=== PATIENT | male | born 1965 | race Caucasian/White ===

== ENCOUNTER 2020-03-22 13:21 | Inpatient (IN) ==
[2020-03-22] MEDS ORDERED: Naloxone 0.4 MG/ML INJ IVP PRN (15:49)
[2020-03-22] MEDS ORDERED: Ondansetron 4 MG/2 ML VIAL IVP PRN (15:49)
[2020-03-22] MEDS ORDERED: 0.9 % Sodium Chloride 1,000 ML IV ONE (16:28)
[2020-03-22] MEDS: *HR* Digoxin 0.5 MG/2 ML AMPUL IVP SCH (16:35)
[2020-03-22] MEDS: Dexamethasone 4 MG/ML VIAL IVP SCH (17:55)
[2020-03-22 18:22] LABS: Basophils # 0.1 K/mcL (0.0-0.2); Basophils % 0.4 %; Eosinophils % 0.2 %; Hematocrit 35.8 % (37.5-50.1); Hemoglobin 11.3 g/dL (12.9-16.9); Immature Granulocytes % 1.1 % (0-4); Lymphocytes # 0.8 K/mcL (0.6-4.6); Lymphocytes % 6.4 %; Mean Corpuscular HGB Conc 31.6 g/dL (31.6-35.5); Mean Corpuscular Hemoglobin 29.2 pg (28.0-33.3); Mean Corpuscular Volume 92.5 fL (83.0-100.0); Mean Platelet Volume 9.5 fL (9.4-12.4); Monocytes # 0.8 K/mcL (0.0-1.3); Platelet Count 307 K/mcL (140-400); Red Blood Count 3.87 M/mcL (4.19-5.50); Red Cell Distribution Width 14.6 % (11.5-14.5); Segmented Neutrophils % 85.9 %; White Blood Count 12.7 K/mcL (4.3-11.1)
[2020-03-22] MEDS ORDERED: *HR* Metoprolol 5 MG/5 ML VIAL IVP ONE (18:32)
[2020-03-22 18:35] LABS: INR 1.7; Prothrombin Time 19.9 Seconds (9.4-12.1)
[2020-03-22 18:53] LABS: BUN/Creatinine Ratio 18 (6-26); Blood Urea Nitrogen 23 mg/dL (6-20); Calcium 8.4 mg/dL (8.6-10.3); Carbon Dioxide 19 mEq/L (23-29); Chloride 100 mEq/L (98-107); Glucose 88 mg/dL (70-105); Osmolality,Calculated 271 (280-300); Potassium 4.7 mEq/L (3.5-5.1); Sodium 129 mEq/L (136-145); Troponin I 0.36 ng/mL (< 0.04); eGFR For African Americans > 60 (> 60); eGFR For Non-African Americans 58 (> 60)
[2020-03-22 19:00] LABS: Bilirubin,Urine Negative (Negative); Blood,Urine Moderate (Negative); Clarity,Urine Clear (Clear); Color,Urine Light-Orange (Yellow); Glucose,Urine (UA) Normal (Normal); Ketones,Urine 10 mg/dL (Negative); Leukocyte Esterase,Urine Negative (Negative); Mucus,Urine Few per lpf (None-Few); Nitrite,Urine Negative (Negative); Protein,Urine 100 mg/dL (Neg-Trace); Specific Gravity,Urine > 1.030 (1.010-1.025)
[2020-03-22] MEDS ORDERED: *HR* Heparin 5,000 UNIT/ML VIAL IVP ONE (20:32)
[2020-03-22] MEDS ORDERED: *HR* Heparin 5,000 UNIT/ML VIAL IVP PRN (20:32)
[2020-03-22] MEDS ORDERED: Heparin 25,000UNIT/250ML 1/2NS 25,000 UNIT/250 ML IV.SOLN IVC SCH (20:45)
[2020-03-22 21:08] LABS: Hematocrit 36.9 % (37.5-50.1); Hemoglobin 11.7 g/dL (12.9-16.9); Mean Corpuscular HGB Conc 31.7 g/dL (31.6-35.5); Mean Corpuscular Hemoglobin 29.2 pg (28.0-33.3); Mean Platelet Volume 9.8 fL (9.4-12.4); Platelet Count 316 K/mcL (140-400); Red Blood Count 4.01 M/mcL (4.19-5.50); Red Cell Distribution Width 14.6 % (11.5-14.5); White Blood Count 13.2 K/mcL (4.3-11.1)
[2020-03-22] MEDS: Piperacillin/Tazobactam 3.375 GM in 0.9 % Sodium Chloride Mini Bag 100 ML IVPB SCH (21:16)
[2020-03-22] MEDS: Loratadine 10 MG TABLET PO SCH (21:16)
[2020-03-22] MEDS: Vancomycin 1,250 MG/262.5 ML IV.SOLN IVPB SCH (21:43)
[2020-03-22] MEDS: Benzonatate 100 MG CAPSULE PO PRN (21:48)
[2020-03-22] MEDS: Heparin 25,000UNIT/250ML 1/2NS 25,000 UNIT/250 ML IV.SOLN IVC SCH (21:50)
[2020-03-22 23:40] LABS: Adenovirus Not Detected (Not Detect); Coronavirus 229E Not Detected (Not Detect); Coronavirus HKU1 Not Detected (Not Detect); Coronavirus NL63 Not Detected (Not Detect); Coronavirus OC43 Not Detected (Not Detect)
[2020-03-22 23:41] LABS: Bordetella Pertussis Not Detected (Not Detect); Chlamydophila pneumoniae Not Detected (Not Detect); Human Metapneumovirus Not Detected (Not Detect); Human Rhinovirus/Enterovirus Not Detected (Not Detect); Influenza A Subtype 2009 H1 Not Detected (Not Detect); Influenza B Not Detected (Not Detect); Mycoplasma pneumoniae Not Detected (Not Detect); Parainfluenza Virus 1 Not Detected (Not Detect); Parainfluenza Virus 2 Not Detected (Not Detect); Parainfluenza Virus 3 Not Detected (Not Detect); Parainfluenza Virus 4 Not Detected (Not Detect); Respiratory Syncytial Virus Not Detected (Not Detect); SARS-CoV-2 DETECTED (Not Detect)
[2020-03-23] MEDS: *HR* Digoxin 0.5 MG/2 ML AMPUL IVP SCH ×2 (00:05→05:25)
[2020-03-23] MEDS: *HR* Metoprolol 5 MG/5 ML VIAL IVP PRN ×2 (02:49→12:51)
[2020-03-23 04:52] LABS: VBG HCO3 21 mEq/L (21-27); VBG PCO2 32 mmHg (41-51); VBG PH 7.42 pH Units (7.32-7.42); VBG PO2 149 mmHg (25-50)
[2020-03-23 04:55] LABS: Basophils % 0.2 %; Eosinophils % 0.1 %; Hematocrit 35.3 % (37.5-50.1); Hemoglobin 11.3 g/dL (12.9-16.9); Immature Granulocytes % 0.5 % (0-4); Lymphocytes # 0.7 K/mcL (0.6-4.6); Mean Corpuscular Volume 93.6 fL (83.0-100.0); Mean Platelet Volume 10.1 fL (9.4-12.4); Monocytes # 0.3 K/mcL (0.0-1.3); Monocytes % 3.4 %; Neutrophils # 7.6 K/mcL (1.6-8.9); Platelet Count 311 K/mcL (140-400); Red Blood Count 3.77 M/mcL (4.19-5.50); Red Cell Distribution Width 14.6 % (11.5-14.5); Segmented Neutrophils % 87.8 %; White Blood Count 8.6 K/mcL (4.3-11.1)
[2020-03-23 05:13] LABS: D-Dimer 3918 ng/mLFEU (0-500); Fibrinogen 716 mg/dL (169-393)
[2020-03-23 05:14] LABS: BUN/Creatinine Ratio 22 (6-26); Blood Urea Nitrogen 24 mg/dL (6-20); Calcium 8.3 mg/dL (8.6-10.3); Carbon Dioxide 20 mEq/L (23-29); Chloride 104 mEq/L (98-107); Glucose 143 mg/dL (70-105); Magnesium 2.3 mg/dL (1.6-2.6); Osmolality,Calculated 283 (280-300); Phosphorous 2.6 mg/dL (2.7-4.5); Potassium 4.6 mEq/L (3.5-5.1); Sodium 133 mEq/L (136-145); eGFR For African Americans > 60 (> 60); eGFR For Non-African Americans > 60 (> 60)
[2020-03-23] MEDS: Piperacillin/Tazobactam 3.375 GM in 0.9 % Sodium Chloride Mini Bag 100 ML IVPB SCH ×3 (05:25→20:14)
[2020-03-23] MEDS: *HR* Heparin 5,000 UNIT/ML VIAL IVP PRN ×2 (05:26→13:06)
[2020-03-23] MEDS: Benzonatate 100 MG CAPSULE PO PRN ×3 (05:27→20:13)
[2020-03-23] MEDS: Dexamethasone 4 MG/ML VIAL IVP SCH (08:50)
[2020-03-23] MEDS: Vancomycin 1,250 MG/262.5 ML IV.SOLN IVPB SCH (08:56)
[2020-03-23] MEDS ORDERED: Pantoprazole 40 MG VIAL IVP SCH (09:00)
[2020-03-23] MEDS ORDERED: Metoprolol XL (24 HR) Succ 50 MG TAB.ER.24H PO SCH ×2 (09:00→21:00)
[2020-03-23] MEDS ORDERED: Perflutren Lipid Microsphere 1.3 ML in 0.9 % Sodium Chloride 8.7 ML IVP PRN (12:44)
[2020-03-23] MEDS: Heparin 25,000UNIT/250ML 1/2NS 25,000 UNIT/250 ML IV.SOLN IVC SCH (18:28)
[2020-03-23] MEDS: Loratadine 10 MG TABLET PO SCH (20:13)
[2020-03-24] MEDS: Vancomycin 1,250 MG/262.5 ML IV.SOLN IVPB SCH ×3 (00:02→19:47)
[2020-03-24 01:32] LABS: Basophils % 0.1 %; Eosinophils % 0.1 %; Hematocrit 36.3 % (37.5-50.1); Hemoglobin 11.7 g/dL (12.9-16.9); Lymphocytes # 0.6 K/mcL (0.6-4.6); Mean Corpuscular HGB Conc 32.2 g/dL (31.6-35.5); Mean Corpuscular Volume 93.1 fL (83.0-100.0); Mean Platelet Volume 10.1 fL (9.4-12.4); Monocytes # 0.4 K/mcL (0.0-1.3); Monocytes % 2.3 %; Neutrophils # 17.7 K/mcL (1.6-8.9); Nucleated Red Blood Cells 0.3 /100 WBC (0); Platelet Count 364 K/mcL (140-400); Red Cell Distribution Width 14.6 % (11.5-14.5); Segmented Neutrophils % 93.5 %
[2020-03-24 01:34] LABS: White Blood Count 18.9 K/mcL (4.3-11.1)
[2020-03-24 01:37] LABS: Fibrinogen 652 mg/dL (169-393)
[2020-03-24 01:38] LABS: D-Dimer 2077 ng/mLFEU (0-500)
[2020-03-24 01:49] LABS: BUN/Creatinine Ratio 28 (6-26); Blood Urea Nitrogen 29 mg/dL (6-20); Calcium 8.7 mg/dL (8.6-10.3); Carbon Dioxide 20 mEq/L (23-29); Chloride 106 mEq/L (98-107); Glucose 120 mg/dL (70-105); Magnesium 2.3 mg/dL (1.6-2.6); Osmolality,Calculated 287 (280-300); Potassium 4.3 mEq/L (3.5-5.1); Sodium 135 mEq/L (136-145); eGFR For African Americans > 60 (> 60); eGFR For Non-African Americans > 60 (> 60)
[2020-03-24] MEDS: Piperacillin/Tazobactam 3.375 GM in 0.9 % Sodium Chloride Mini Bag 100 ML IVPB SCH ×3 (05:24→21:30)
[2020-03-24] MEDS: *HR* Heparin 5,000 UNIT/ML VIAL IVP PRN ×2 (05:30→15:07)
[2020-03-24] MEDS: Metoprolol XL (24 HR) Succ 25 MG TAB.ER.24H PO SCH ×2 (08:43→19:39)
[2020-03-24] MEDS: Dexamethasone 4 MG/ML VIAL IVP SCH (08:44)
[2020-03-24 09:46] LABS: Angiotensin Converting Enzyme 19 U/L (9-67)
[2020-03-24] MEDS: Heparin 25,000UNIT/250ML 1/2NS 25,000 UNIT/250 ML IV.SOLN IVC SCH (12:16)
[2020-03-24 13:27] LABS: INR 1.3; Prothrombin Time 15.4 Seconds (9.4-12.1)
[2020-03-24] MEDS: Nicotine 14 MG PATCH.TD24 TD SCH (13:43)
[2020-03-24] MEDS: Menthol 9.1 MG LOZENGE PO PRN (13:43)
[2020-03-24] MEDS ORDERED: *HR* Warfarin 2.5 MG TABLET PO ONE (18:00)
[2020-03-24] MEDS ORDERED: Warfarin perPT PO PRN (18:00)
[2020-03-24] MEDS: Loratadine 10 MG TABLET PO SCH (19:40)
[2020-03-24] MEDS ORDERED: Levalbuterol Neb 0.63 MG/3 ML IH SCH (22:00)
[2020-03-24] MEDS: Levalbuterol 1 PUFF INHALER IH SCH (22:06)
[2020-03-24] MEDS: Ipratropium 1 PUFF INHALER IH SCH (22:06)
[2020-03-25 02:53] LABS: Basophils % 0.1 %; Hematocrit 37.4 % (37.5-50.1); Hemoglobin 11.5 g/dL (12.9-16.9); Immature Granulocytes % 1.2 % (0-4); Lymphocytes # 0.4 K/mcL (0.6-4.6); Lymphocytes % 2.1 %; Mean Corpuscular HGB Conc 30.7 g/dL (31.6-35.5); Mean Corpuscular Hemoglobin 28.9 pg (28.0-33.3); Mean Platelet Volume 10.5 fL (9.4-12.4); Monocytes # 0.8 K/mcL (0.0-1.3); Monocytes % 3.9 %; Neutrophils # 17.9 K/mcL (1.6-8.9); Platelet Count 378 K/mcL (140-400); Red Blood Count 3.98 M/mcL (4.19-5.50); Segmented Neutrophils % 92.7 %; White Blood Count 19.3 K/mcL (4.3-11.1)
[2020-03-25 03:01] LABS: INR 1.3; Prothrombin Time 15.3 Seconds (9.4-12.1)
[2020-03-25 03:10] LABS: Chol/HDL Ratio 7.7 (0-4.9); Cholesterol 146 mg/dL (< 200); HDL Cholesterol 19 mg/dL (40-59); LDL Cholesterol,Calculated 96 mg/dL (< 100); Triglycerides 153 mg/dL (< 150)
[2020-03-25] MEDS: Heparin 25,000UNIT/250ML 1/2NS 25,000 UNIT/250 ML IV.SOLN IVC SCH ×2 (03:50→19:20)
[2020-03-25] MEDS: Levalbuterol 1 PUFF INHALER IH SCH ×4 (04:00→22:49)
[2020-03-25] MEDS: Ipratropium 1 PUFF INHALER IH SCH ×4 (04:00→22:48)
[2020-03-25] MEDS: Piperacillin/Tazobactam 3.375 GM in 0.9 % Sodium Chloride Mini Bag 100 ML IVPB SCH ×3 (05:15→21:50)
[2020-03-25 06:43] LABS: ANA IgG by ELISA NONE DETECTED (None Detected)
[2020-03-25] MEDS: Nicotine 14 MG PATCH.TD24 TD SCH (09:21)
[2020-03-25] MEDS: Metoprolol XL (24 HR) Succ 25 MG TAB.ER.24H PO SCH ×2 (09:22→21:50)
[2020-03-25] MEDS: Dexamethasone 4 MG/ML VIAL IVP SCH (09:22)
[2020-03-25] MEDS: Benzonatate 100 MG CAPSULE PO PRN ×2 (09:22→21:50)
[2020-03-25] MEDS: Vancomycin 1,250 MG/262.5 ML IV.SOLN IVPB SCH ×2 (09:23→21:52)
[2020-03-25] MEDS ORDERED: Nicotine 2 MG GUM BC PRN (09:38)
[2020-03-25 10:51] LABS: eGFR For African Americans > 60 (> 60); eGFR For Non-African Americans > 60 (> 60)
[2020-03-25 16:42] LABS: Serine Protease-3 Antibody 19 AU/mL (0-19)
[2020-03-25] MEDS ORDERED: *HR* Warfarin 2.5 MG TABLET PO ONE (18:00)
[2020-03-25] MEDS: Loratadine 10 MG TABLET PO SCH (21:49)
[2020-03-25] MEDS: GuaiFENesin/Codeine Oral Soln 5 ML UDC PO PRN (21:49)
[2020-03-26] MEDS: Menthol 9.1 MG LOZENGE PO PRN (02:55)
[2020-03-26 03:54] LABS: INR 1.4; Prothrombin Time 15.8 Seconds (9.4-12.1)
[2020-03-26 03:56] LABS: Hematocrit 40.1 % (37.5-50.1); Hemoglobin 12.4 g/dL (12.9-16.9); Mean Corpuscular HGB Conc 30.9 g/dL (31.6-35.5); Mean Corpuscular Hemoglobin 29.2 pg (28.0-33.3); Mean Corpuscular Volume 94.6 fL (83.0-100.0); Mean Platelet Volume 10.5 fL (9.4-12.4); Platelet Count 393 K/mcL (140-400); Red Blood Count 4.24 M/mcL (4.19-5.50); Red Cell Distribution Width 15.4 % (11.5-14.5); White Blood Count 21.1 K/mcL (4.3-11.1)
[2020-03-26] MEDS ORDERED: Acetaminophen 325 MG TABLET PO PRN (04:02)
[2020-03-26 04:07] LABS: BUN/Creatinine Ratio 30 (6-26); Blood Urea Nitrogen 36 mg/dL (6-20); Calcium 8.7 mg/dL (8.6-10.3); Carbon Dioxide 18 mEq/L (23-29); Chloride 108 mEq/L (98-107); Glucose 114 mg/dL (70-105); Osmolality,Calculated 289 (280-300); Potassium 4.7 mEq/L (3.5-5.1); Sodium 135 mEq/L (136-145); eGFR For African Americans > 60 (> 60); eGFR For Non-African Americans > 60 (> 60)
[2020-03-26] MEDS: Ipratropium 1 PUFF INHALER IH SCH ×4 (04:07→21:10)
[2020-03-26] MEDS: Levalbuterol 1 PUFF INHALER IH SCH ×4 (04:07→21:11)
[2020-03-26] MEDS: Piperacillin/Tazobactam 3.375 GM in 0.9 % Sodium Chloride Mini Bag 100 ML IVPB SCH ×3 (04:26→21:03)
[2020-03-26] MEDS: GuaiFENesin/Codeine Oral Soln 5 ML UDC PO PRN ×3 (04:26→22:54)
[2020-03-26 04:27] LABS: Triiodothyronine (T3) Free 2.46 pg/mL (2.50-3.90)
[2020-03-26] MEDS ORDERED: Furosemide 20 MG TABLET PO SCH (09:00)
[2020-03-26] MEDS ORDERED: Doxycycline 100 MG in 0.9 % Sodium Chloride Mini Bag 100 ML IVPB SCH (09:21)
[2020-03-26] MEDS: Metoprolol XL (24 HR) Succ 25 MG TAB.ER.24H PO SCH ×2 (09:23→21:01)
[2020-03-26] MEDS: Nicotine 14 MG PATCH.TD24 TD SCH (09:23)
[2020-03-26] MEDS: Dexamethasone 4 MG/ML VIAL IVP SCH (09:24)
[2020-03-26] MEDS: Heparin 25,000UNIT/250ML 1/2NS 25,000 UNIT/250 ML IV.SOLN IVC SCH (09:25)
[2020-03-26] MEDS: Doxycycline 100 MG CAPSULE PO SCH ×2 (10:01→21:01)
[2020-03-26] MEDS: *HR* Enoxaparin 100 MG/ML SYRINGE SQ SCH ×2 (11:47→22:53)
[2020-03-26] MEDS ORDERED: *HR* Warfarin 2.5 MG TABLET PO ONE (18:00)
[2020-03-26] MEDS: Loratadine 10 MG TABLET PO SCH (21:03)
[2020-03-27] MEDS ORDERED: *HR* LORazepam 0.5 MG TABLET PO ONE (00:30)
[2020-03-27] MEDS ORDERED: Dextromethorphan Polistrx(12h) 30 MG/5 ML UDC PO ONE (00:32)
[2020-03-27] MEDS: *HR* Metoprolol 5 MG/5 ML VIAL IVP PRN (02:14)
[2020-03-27] MEDS ORDERED: *HR* LORazepam 1 MG TABLET PO ONE (02:30)
[2020-03-27] MEDS: Levalbuterol 1 PUFF INHALER IH SCH ×4 (02:34→21:48)
[2020-03-27] MEDS: Ipratropium 1 PUFF INHALER IH SCH ×4 (02:34→21:48)
[2020-03-27] MEDS ORDERED: *HR* LORazepam 2 MG/ML VIAL IVP ONE (03:09)
[2020-03-27] MEDS: Dexmedetomidine HCl 400 MCG/100 ML MLS IVC SCH ×2 (03:34→22:00)
[2020-03-27] MEDS ORDERED: Furosemide 40 MG/4 ML VIAL IVP ONE (03:44)
[2020-03-27 04:12] LABS: ABG Base Excess -5 mEq/L (-2 to 3); ABG HCO3 19 mEq/L (21-27); ABG Oxygen Saturation 96 % (95-98); ABG PCO2 33 mmHg (35-45); ABG PH 7.38 pH Units (7.32-7.45); ABG PO2 83 mmHg (85-104); ABG TCO2 20 mEq/L (20-26)
[2020-03-27] MEDS: Piperacillin/Tazobactam 3.375 GM in 0.9 % Sodium Chloride Mini Bag 100 ML IVPB SCH ×3 (05:03→21:03)
[2020-03-27 05:50] LABS: Hematocrit 43.5 % (37.5-50.1); Hemoglobin 13.5 g/dL (12.9-16.9); Mean Corpuscular Hemoglobin 29.3 pg (28.0-33.3); Mean Corpuscular Volume 94.6 fL (83.0-100.0); Mean Platelet Volume 10.3 fL (9.4-12.4); Platelet Count 410 K/mcL (140-400); Red Cell Distribution Width 16.3 % (11.5-14.5); White Blood Count 18.5 K/mcL (4.3-11.1)
[2020-03-27] MEDS: Dexamethasone Sodium Phos/PF 10 MG/ML VIAL IVP SCH (05:54)
[2020-03-27 05:58] LABS: INR 1.5
[2020-03-27 06:09] LABS: BUN/Creatinine Ratio 33 (6-26); Blood Urea Nitrogen 39 mg/dL (6-20); Calcium 8.9 mg/dL (8.6-10.3); Carbon Dioxide 19 mEq/L (23-29); Chloride 106 mEq/L (98-107); Glucose 114 mg/dL (70-105); Osmolality,Calculated 292 (280-300); Potassium 4.7 mEq/L (3.5-5.1); Sodium 136 mEq/L (136-145); eGFR For African Americans > 60 (> 60); eGFR For Non-African Americans > 60 (> 60)
[2020-03-27] MEDS: Furosemide 40 MG/4 ML VIAL IVP SCH ×2 (07:51→17:00)
[2020-03-27] MEDS: Nicotine 14 MG PATCH.TD24 TD SCH (07:51)
[2020-03-27] MEDS: *HR* Enoxaparin 100 MG/ML SYRINGE SQ SCH ×2 (11:05→23:34)
[2020-03-27] MEDS: Metoprolol XL (24 HR) Succ 25 MG TAB.ER.24H PO SCH ×2 (11:05→21:04)
[2020-03-27 16:26] LABS: BUN/Creatinine Ratio 33 (6-26); Blood Urea Nitrogen 41 mg/dL (6-20); Calcium 8.4 mg/dL (8.6-10.3); Carbon Dioxide 26 mEq/L (23-29); Chloride 105 mEq/L (98-107); Glucose 139 mg/dL (70-105); Osmolality,Calculated 300 (280-300); Potassium 4.4 mEq/L (3.5-5.1); Sodium 139 mEq/L (136-145); eGFR For African Americans > 60 (> 60); eGFR For Non-African Americans > 60 (> 60)
[2020-03-27] MEDS ORDERED: *HR* Warfarin 3 MG TABLET PO ONE (18:00)
[2020-03-27] MEDS ORDERED: *HR* Warfarin 2.5 MG TABLET PO ONE (18:00)
[2020-03-27] MEDS: Loratadine 10 MG TABLET PO SCH (21:05)
[2020-03-28] MEDS: Levalbuterol 1 PUFF INHALER IH SCH ×4 (04:24→21:51)
[2020-03-28] MEDS: Ipratropium 1 PUFF INHALER IH SCH (04:25)
[2020-03-28] MEDS: Piperacillin/Tazobactam 3.375 GM in 0.9 % Sodium Chloride Mini Bag 100 ML IVPB SCH ×3 (05:14→20:43)
[2020-03-28 07:01] LABS: VBG Ionized Calcium 1.04 mmol/L (1.15-1.35)
[2020-03-28 07:17] LABS: Alanine Aminotransferase 141 Units/L (7-52); Albumin 2.9 g/dL (3.5-5.7); Albumin/Globulin Ratio 0.9 (1.1-2.2); Alkaline Phosphatase 98 Units/L (34-104); Aspartate Amino Transferase 19 Units/L (13-39); BUN/Creatinine Ratio 36 (6-26); Bilirubin,Total 0.7 mg/dL (0.3-1.0); Blood Urea Nitrogen 41 mg/dL (6-20); Calcium 8.7 mg/dL (8.6-10.3); Carbon Dioxide 28 mEq/L (23-29); Chloride 102 mEq/L (98-107); Globulin 3.4 g/dL (2.4-3.5); Glucose 109 mg/dL (70-105); Magnesium 2.5 mg/dL (1.6-2.6); Osmolality,Calculated 297 (280-300); Phosphorous 4.6 mg/dL (2.7-4.5); Potassium 4.1 mEq/L (3.5-5.1); Sodium 138 mEq/L (136-145); Total Protein 6.3 g/dL (6.4-8.9); eGFR For African Americans > 60 (> 60); eGFR For Non-African Americans > 60 (> 60)
[2020-03-28 07:25] LABS: INR 1.5; Prothrombin Time 16.7 Seconds (9.4-12.1)
[2020-03-28 07:27] LABS: Activated Partial Thrombo Time 29.6 Seconds (26.0-36.0)
[2020-03-28] MEDS: Dexamethasone Sodium Phos/PF 10 MG/ML VIAL IVP SCH ×2 (07:38→07:47)
[2020-03-28] MEDS: Furosemide 40 MG/4 ML VIAL IVP SCH ×2 (07:39→16:45)
[2020-03-28] MEDS: Metoprolol XL (24 HR) Succ 25 MG TAB.ER.24H PO SCH ×2 (07:40→20:43)
[2020-03-28] MEDS: Cholecalciferol (D-3) 1,000 UNIT (25MCG) TABLET PO SCH (07:40)
[2020-03-28] MEDS: Nicotine 14 MG PATCH.TD24 TD SCH (07:40)
[2020-03-28] MEDS: *HR* Enoxaparin 100 MG/ML SYRINGE SQ SCH (10:10)
[2020-03-28] MEDS: Budesonide/Formoterol 160/4.5 1 PUFF INH IH SCH ×2 (10:50→21:51)
[2020-03-28] MEDS: Benzonatate 100 MG CAPSULE PO SCH ×2 (14:00→20:43)
[2020-03-28] MEDS: Dexmedetomidine HCl 400 MCG/100 ML MLS IVC SCH (14:00)
[2020-03-28] MEDS: Loratadine 10 MG TABLET PO SCH (20:43)
[2020-03-29] MEDS: *HR* Enoxaparin 100 MG/ML SYRINGE SQ SCH ×3 (00:01→21:58)
[2020-03-29] MEDS: Levalbuterol 1 PUFF INHALER IH SCH ×4 (03:40→22:01)
[2020-03-29] MEDS: Piperacillin/Tazobactam 3.375 GM in 0.9 % Sodium Chloride Mini Bag 100 ML IVPB SCH (05:02)
[2020-03-29 05:10] LABS: Basophils # 0.1 K/mcL (0.0-0.2); Basophils % 0.3 %; Hematocrit 42.6 % (37.5-50.1); Hemoglobin 13.7 g/dL (12.9-16.9); Immature Granulocytes % 1.8 % (0-4); Lymphocytes # 0.5 K/mcL (0.6-4.6); Lymphocytes % 3.5 %; Mean Corpuscular HGB Conc 32.2 g/dL (31.6-35.5); Mean Corpuscular Hemoglobin 29.5 pg (28.0-33.3); Mean Corpuscular Volume 91.8 fL (83.0-100.0); Mean Platelet Volume 10.3 fL (9.4-12.4); Monocytes # 0.5 K/mcL (0.0-1.3); Monocytes % 3.3 %; Nucleated Red Blood Cells 0.3 /100 WBC (0); Platelet Count 334 K/mcL (140-400); Red Blood Count 4.64 M/mcL (4.19-5.50); Red Cell Distribution Width 15.6 % (11.5-14.5); Segmented Neutrophils % 91.1 %; White Blood Count 15.3 K/mcL (4.3-11.1)
[2020-03-29 05:18] LABS: Fibrinogen 500 mg/dL (169-393); INR 1.4; Prothrombin Time 15.7 Seconds (9.4-12.1)
[2020-03-29 05:20] LABS: D-Dimer 2380 ng/mLFEU (0-500)
[2020-03-29 05:26] LABS: Alanine Aminotransferase 111 Units/L (7-52); Albumin 3.1 g/dL (3.5-5.7); Alkaline Phosphatase 88 Units/L (34-104); Aspartate Amino Transferase 15 Units/L (13-39); BUN/Creatinine Ratio 37 (6-26); Bilirubin,Total 0.5 mg/dL (0.3-1.0); Blood Urea Nitrogen 40 mg/dL (6-20); Calcium 8.8 mg/dL (8.6-10.3); Carbon Dioxide 28 mEq/L (23-29); Chloride 100 mEq/L (98-107); Globulin 3.2 g/dL (2.4-3.5); Glucose 126 mg/dL (70-105); Osmolality,Calculated 297 (280-300); Potassium 3.8 mEq/L (3.5-5.1); Sodium 138 mEq/L (136-145); Total Protein 6.3 g/dL (6.4-8.9); eGFR For African Americans > 60 (> 60); eGFR For Non-African Americans > 60 (> 60)
[2020-03-29] MEDS: Furosemide 40 MG/4 ML VIAL IVP SCH ×2 (07:01→17:49)
[2020-03-29] MEDS: Nicotine 14 MG PATCH.TD24 TD SCH (07:26)
[2020-03-29] MEDS: Dexamethasone Sodium Phos/PF 10 MG/ML VIAL IVP SCH (07:27)
[2020-03-29] MEDS: Benzonatate 100 MG CAPSULE PO SCH ×3 (07:27→21:57)
[2020-03-29] MEDS: Cholecalciferol (D-3) 1,000 UNIT (25MCG) TABLET PO SCH (07:27)
[2020-03-29] MEDS: Metoprolol XL (24 HR) Succ 25 MG TAB.ER.24H PO SCH ×2 (07:27→21:57)
[2020-03-29] MEDS: Dexmedetomidine HCl 400 MCG/100 ML MLS IVC SCH (08:24)
[2020-03-29] MEDS ORDERED: dexAMETHasone 4 MG TABLET PO SCH (09:00)
[2020-03-29] MEDS ORDERED: Ondansetron 4 MG/2 ML VIAL IVP PRN (09:39)
[2020-03-29] MEDS ORDERED: Acetaminophen 325 MG TABLET PO PRN (09:39)
[2020-03-29] MEDS ORDERED: Dexmedetomidine HCl 400 MCG/100 ML MLS IVC SCH (09:39)
[2020-03-29] MEDS ORDERED: GuaiFENesin/Codeine Oral Soln 5 ML UDC PO PRN (09:39)
[2020-03-29] MEDS ORDERED: Perflutren Lipid Microsphere 1.3 ML in 0.9 % Sodium Chloride 8.7 ML IVP PRN (09:39)
[2020-03-29] MEDS ORDERED: Menthol 9.1 MG LOZENGE PO PRN (09:39)
[2020-03-29] MEDS ORDERED: *HR* Metoprolol 5 MG/5 ML VIAL IVP PRN (09:39)
[2020-03-29] MEDS ORDERED: Nicotine 2 MG GUM BC PRN (09:39)
[2020-03-29] MEDS ORDERED: Naloxone 0.4 MG/ML INJ IVP PRN (09:39)
[2020-03-29] MEDS: Budesonide/Formoterol 160/4.5 1 PUFF INH IH SCH ×2 (11:38→22:02)
[2020-03-29] MEDS: Loratadine 10 MG TABLET PO SCH (21:57)
[2020-03-30 01:57] LABS: INR 1.2; Prothrombin Time 14.1 Seconds (9.4-12.1)
[2020-03-30] MEDS: Levalbuterol 1 PUFF INHALER IH SCH ×4 (04:11→21:47)
[2020-03-30] MEDS ORDERED: dexAMETHasone 4 MG TABLET PO SCH (09:00)
[2020-03-30] MEDS: Cholecalciferol (D-3) 1,000 UNIT (25MCG) TABLET PO SCH (09:11)
[2020-03-30] MEDS: lisinopriL 5 MG TABLET PO SCH (09:11)
[2020-03-30] MEDS: Metoprolol XL (24 HR) Succ 25 MG TAB.ER.24H PO SCH (09:12)
[2020-03-30] MEDS: Furosemide 40 MG/4 ML VIAL IVP SCH ×2 (09:13→16:58)
[2020-03-30] MEDS: dexAMETHasone 4 MG TABLET PO SCH (09:13)
[2020-03-30] MEDS: Benzonatate 100 MG CAPSULE PO SCH ×3 (09:13→23:14)
[2020-03-30] MEDS: Nicotine 14 MG PATCH.TD24 TD SCH (09:13)
[2020-03-30] MEDS: Budesonide/Formoterol 160/4.5 1 PUFF INH IH SCH ×2 (11:49→21:47)
[2020-03-30] MEDS: *HR* Enoxaparin 100 MG/ML SYRINGE SQ SCH ×2 (12:25→23:14)
[2020-03-30 12:44] LABS: Basophils # 0.1 K/mcL (0.0-0.2); Basophils % 0.3 %; Eosinophils # 0.1 K/mcL (0.0-0.6); Eosinophils % 0.5 %; Hematocrit 49.4 % (37.5-50.1); Immature Granulocytes % 2.3 % (0-4); Lymphocytes # 0.8 K/mcL (0.6-4.6); Lymphocytes % 4.5 %; Mean Corpuscular HGB Conc 31.4 g/dL (31.6-35.5); Mean Corpuscular Volume 92.5 fL (83.0-100.0); Mean Platelet Volume 10.5 fL (9.4-12.4); Monocytes # 1.4 K/mcL (0.0-1.3); Monocytes % 7.8 %; Neutrophils # 15.7 K/mcL (1.6-8.9); Nucleated Red Blood Cells 0.2 /100 WBC (0); Platelet Count 395 K/mcL (140-400); Red Blood Count 5.34 M/mcL (4.19-5.50); Red Cell Distribution Width 16.1 % (11.5-14.5); Segmented Neutrophils % 84.6 %; White Blood Count 18.5 K/mcL (4.3-11.1)
[2020-03-30 12:45] LABS: Hemoglobin 15.5 g/dL (12.9-16.9)
[2020-03-30 13:06] LABS: BUN/Creatinine Ratio 37 (6-26); Blood Urea Nitrogen 37 mg/dL (6-20); Carbon Dioxide 27 mEq/L (23-29); Chloride 98 mEq/L (98-107); Glucose 82 mg/dL (70-105); Osmolality,Calculated 288 (280-300); Potassium 3.8 mEq/L (3.5-5.1); Sodium 135 mEq/L (136-145); eGFR For African Americans > 60 (> 60); eGFR For Non-African Americans > 60 (> 60)
[2020-03-30] MEDS ORDERED: Warfarin perPT PO PRN (18:00)
[2020-03-30] MEDS ORDERED: *HR* Warfarin 2.5 MG TABLET PO ONE (18:00)
[2020-03-30] MEDS: Loratadine 10 MG TABLET PO SCH (19:32)
[2020-03-30] MEDS: Metoprolol XL (24 HR) Succ 50 MG TAB.ER.24H PO SCH (19:33)
[2020-03-31 02:37] LABS: INR 1.2; Prothrombin Time 13.5 Seconds (9.4-12.1)
[2020-03-31] MEDS: Levalbuterol 1 PUFF INHALER IH SCH ×2 (03:39→09:53)
[2020-03-31] MEDS ORDERED: *HR* Digoxin 0.5 MG/2 ML AMPUL IVP ONE (08:10)
[2020-03-31] MEDS: lisinopriL 5 MG TABLET PO SCH (09:06)
[2020-03-31] MEDS: Cholecalciferol (D-3) 1,000 UNIT (25MCG) TABLET PO SCH (09:07)
[2020-03-31] MEDS: Metoprolol XL (24 HR) Succ 50 MG TAB.ER.24H PO SCH (09:07)
[2020-03-31] MEDS: Benzonatate 100 MG CAPSULE PO SCH (09:08)
[2020-03-31] MEDS: Nicotine 14 MG PATCH.TD24 TD SCH (09:08)
[2020-03-31] MEDS: Furosemide 40 MG/4 ML VIAL IVP SCH (09:10)
[2020-03-31] MEDS: dexAMETHasone 4 MG TABLET PO SCH (09:10)
[2020-03-31] MEDS: Budesonide/Formoterol 160/4.5 1 PUFF INH IH SCH (09:54)
[2020-03-31 11:23] VITALS: BP 105/90
[2020-03-31] MEDS: *HR* Enoxaparin 100 MG/ML SYRINGE SQ SCH (12:33)
[2020-03-31] MEDS ORDERED: *HR* Warfarin 2.5 MG TABLET PO ONE (18:00)
== END 2020-03-31 17:01 | disposition home or self-care (01) | DRG 720 ==
LOC: 2NENU → SUATTDRO 15:01 → ICNU 03-27 10:34 → 2NENU 03-29 10:42
PROVIDERS: ADMIT Pharmacist; ATTEND Internal Medicine